=== PATIENT | female | born 1945 | race Two or more races ===

== ENCOUNTER 2021-09-27 12:08 | Emergency (ER) | payer MEDICARE, OTHER ==
[~2021-09-27] VITALS: Ht 175.3 cm; Wt 81.6 kg
[2021-09-27 13:15] VITALS: BP 107/64
== END 2021-09-27 13:54 | disposition home or self-care (01) ==
LOC: ER 12:08
DX: I82.402 Acute embolism and thrombosis of unspecified deep veins of left lower extremity (principal); I10 Essential (primary) hypertension
CPT/HCPCS: 93971

== ENCOUNTER 2022-07-01 08:31 | Inpatient (IN) | payer MEDICARE, OTHER ==
[~2022-07-01] VITALS: Ht 175.3 cm; Wt 81.2 kg
[2022-07-01 09:37] LABS: Basophils # (auto) 0 10 ^3/uL (0-0.2); Basophils % (auto) 0.2 % (0.0-2.0); Eosinophils # (auto) 0.1 10 ^3/uL (0-0.8); Eosinophils % (auto) 0.6 % (0.0-7.0); Hematocrit 45.1 % (36.0-46.0); Hemoglobin 14.8 g/dL (12.2-16.2); Lymphocytes # (auto) 0.8 10 ^3/uL (0.4-5.4); Lymphocytes % (auto) 7.7 % (10.0-50.0); Mean Corpuscular Hemoglobin 29.3 pg (28.0-32.0); Mean Corpuscular Hgb Conc. 32.8 g/dL (32.0-36.0); Mean Corpuscular Volume 89.4 fL (80.0-100.0); Monocytes # (auto) 0.8 10 ^3/uL (0-1.3); Monocytes % (auto) 7.8 % (0.0-12.0); Neutrophils # (auto) 8.7 10 ^3/uL (1.6-8.6); Neutrophils % (auto) 83.7 % (37.0-80.0); Red Blood Cells 5.05 10^6/uL (4.0-5.20); Red Cell Distribution Width 15.6 % (11.8-14.3); White Blood Cell 10.3 10^3/uL (4.4-10.8)
[2022-07-01 10:06] LABS: Albumin 2.7 g/dL (3.4-5.0); Calcium 8.6 mg/dL (8.5-10.1); Potassium 3.7 mmol/L (3.5-5.1)
[2022-07-01 10:09] LABS: BUN/Creatinine Ratio 31.4; Bilirubin, Total 0.3 mg/dL (0.2-1.0); Total Protein 7.2 g/dL (6.4-8.2)
[2022-07-01 10:12] LABS: Urine Bacteria FEW /hpf (None Seen); Urine Blood 1+ /uL (Negative); Urine Specific Gravity 1.008 (1.001-1.035); Urine WBC 5 /hpf (0 - 5)
[2022-07-01] MEDS ORDERED: SODIUM CHLORIDE 0.9% 1,000 ML IV ONE (10:45)
[2022-07-01] MEDS ORDERED: SODIUM CHLORIDE 0.9% 500 ML IVB ONE (10:45)
[2022-07-01 10:58] LABS: INR 1.25 (0.9-1.15); Magnesium 1.8 mg/dL (1.6-2.6); Partial Thromboplastin Time 45.7 sec (24.6-33.4)
[2022-07-01] MEDS ORDERED: cefTRIAXone 1GM/50ML D5W 50 ML IV ONE (13:45)
[2022-07-01] MEDS ORDERED: DOCUSATE SOD 100 MG CAP PO PRN (14:15)
[2022-07-01] MEDS ORDERED: HYDROcodone-ACET 5/325MG TAB PO PRN (14:15)
[2022-07-01] MEDS ORDERED: ACETAMINOPHEN 325 MG TAB PO PRN (14:15)
[2022-07-01] MEDS ORDERED: ONDANSETRON HCL 4 MG/2 ML VIAL IV PRN (14:15)
[2022-07-01] MEDS ORDERED: MORPHINE SULFATE INJ 2 MG/ml SYRG IV PRN (14:15)
[2022-07-02] VITALS (7 sets, daily range): BP systolic 92–124; BP diastolic 53–88
[2022-07-02] MEDS ORDERED: DABI150C5 PO (01:58)
[2022-07-02] MEDS ORDERED: METO25TA5 PO (01:59)
[2022-07-02] MEDS ORDERED: B-COCAP34 OR (02:05)
[2022-07-02] MEDS ORDERED: DILT-29 PO (02:05)
[2022-07-02] MEDS ORDERED: CHOL20007 PO (02:05)
[2022-07-02 05:30] LABS: Basophils # (auto) 0 10 ^3/uL (0-0.2); Basophils % (auto) 0.3 % (0.0-2.0); Eosinophils # (auto) 0.1 10 ^3/uL (0-0.8); Eosinophils % (auto) 0.8 % (0.0-7.0); Hematocrit 41.5 % (36.0-46.0); Hemoglobin 13.7 g/dL (12.2-16.2); Lymphocytes % (auto) 9.5 % (10.0-50.0); Mean Corpuscular Hemoglobin 29.4 pg (28.0-32.0); Mean Corpuscular Hgb Conc. 33.1 g/dL (32.0-36.0); Monocytes % (auto) 9.4 % (0.0-12.0); Neutrophils # (auto) 8.6 10 ^3/uL (1.6-8.6); Red Blood Cells 4.66 10^6/uL (4.0-5.20); Red Cell Distribution Width 15.9 % (11.8-14.3); White Blood Cell 10.7 10^3/uL (4.4-10.8)
[2022-07-02 05:49] LABS: Albumin 2.5 g/dL (3.4-5.0); BUN/Creatinine Ratio 26.1; Calcium 7.9 mg/dL (8.5-10.1); Potassium 3.4 mmol/L (3.5-5.1)
[2022-07-02 05:52] LABS: Bilirubin, Total 0.4 mg/dL (0.2-1.0)
[2022-07-02] MEDS ORDERED: IOHEXOL 350 MG/ML 100ML IJ ONE (13:02)
[2022-07-02] MEDS ORDERED: FURO1TAB31 PO (13:24)
[2022-07-02] MEDS ORDERED: EMTRTAB7 PO (13:24)
[2022-07-02] MEDS ORDERED: ESTR1TAB6 PO (13:24)
[2022-07-02] MEDS ORDERED: VITA80009 PO (13:24)
[2022-07-02] MEDS ORDERED: MEDR2.5T3 PO (13:24)
[2022-07-02] MEDS ORDERED: POTASSIUM CHL 20 Meq TABLET PO ONE (16:45)
== END 2022-07-02 22:28 | disposition home or self-care (01) | DRG 378 ==
LOC: ER 08:31 → OVERFLOW 14:16 → WEST WING 23:24
PROVIDERS: ADMIT Internal Medicine; ATTEND Internal Medicine Geriatric Medicine
DX: K57.91 Diverticulosis of intestine, part unspecified, without perforation or abscess with bleeding (principal); E44.0 Moderate protein-calorie malnutrition; N39.0 Urinary tract infection, site not specified; K86.2 Cyst of pancreas; E87.6 Hypokalemia; F32.A Depression, unspecified; G89.4 Chronic pain syndrome; I10 Essential (primary) hypertension; I48.91 Unspecified atrial fibrillation; Z20.822 Contact with and (suspected) exposure to COVID-19; N32.9 Bladder disorder, unspecified; Z68.26 Body mass index [BMI] 26.0-26.9, adult
CPT/HCPCS: 36415; 71046; 74177; 80053; 81001; 83690; 83735; 84154; 84484; 85025; 85610; 85730; 93005; 96365; 96375; G0378; J0696

== ENCOUNTER 2022-07-21 05:29 | Emergency (ER) | payer OTHER ==
[~2022-07-21] VITALS: Ht 175.3 cm; Wt 81.0 kg
[~2022-07-21 05:29] MED LIST: CHOL20007 PO; DABI150C5 PO; DILT-29 PO; ESTR1TAB6 PO; FURO1TAB31 PO; MEDR2.5T3 PO; METO25TA5 PO; VITA80009 PO
[2022-07-21 06:59] LABS: Basophils # (auto) 0.1 10 ^3/uL (0-0.2); Eosinophils # (auto) 0.2 10 ^3/uL (0-0.8); Eosinophils % (auto) 3.9 % (0.0-7.0); Hematocrit 43.3 % (36.0-46.0); Hemoglobin 14.1 g/dL (12.2-16.2); Lymphocytes # (auto) 1.2 10 ^3/uL (0.4-5.4); Lymphocytes % (auto) 20.2 % (10.0-50.0); Mean Corpuscular Hemoglobin 29.6 pg (28.0-32.0); Mean Corpuscular Hgb Conc. 32.6 g/dL (32.0-36.0); Mean Corpuscular Volume 90.8 fL (80.0-100.0); Monocytes # (auto) 0.6 10 ^3/uL (0-1.3); Monocytes % (auto) 9.3 % (0.0-12.0); Neutrophils # (auto) 4.1 10 ^3/uL (1.6-8.6); Neutrophils % (auto) 65.6 % (37.0-80.0); Nucleated Red Blood Cells % 0.1 %; Red Blood Cells 4.77 10^6/uL (4.0-5.20); Red Cell Distribution Width 16.1 % (11.8-14.3); White Blood Cell 6.2 10^3/uL (4.4-10.8)
[2022-07-21 07:09] LABS: Urine Bacteria NONE SEEN /hpf (None Seen); Urine Blood Negative /uL (Negative); Urine Hyaline Cast FEW /lpf (0 - 2); Urine Specific Gravity 1.008 (1.001-1.035); Urine WBC 81 /hpf (0 - 5)
[2022-07-21 07:16] LABS: Albumin 3.1 g/dL (3.4-5.0); Calcium 8.4 mg/dL (8.5-10.1); Potassium 3.3 mmol/L (3.5-5.1)
[2022-07-21 07:19] LABS: Bilirubin, Total 0.4 mg/dL (0.2-1.0); Total Protein 6.9 g/dL (6.4-8.2)
[2022-07-21 07:26] LABS: Alcohol, Urine < 3.0 mg/dL (0-10); Amphetamine Screen, Urine NEGATIVE (NEGATIVE); Barbiturate Scree,Urine NEGATIVE (NEGATIVE); Benzodiazephine Screen, Urine NEGATIVE (NEGATIVE); Cannabinoid Screen, Urine NEGATIVE (NEGATIVE); Cocaine Screen, Urine NEGATIVE (NEGATIVE); Opiate Scree,Urine NEGATIVE (NEGATIVE); Phencyclidine Screen, Urine NEGATIVE (NEGATIVE)
[2022-07-21] MEDS ORDERED: NITR-87 PO (08:46)
[2022-07-21] MEDS ORDERED: POTASSIUM EFFERVESENT TAB 25 MEQ PO ONE (09:00)
[2022-07-21 13:04] VITALS: BP 134/101
== END 2022-07-21 13:08 | disposition home or self-care (01) ==
LOC: ER 05:29
DX: N39.0 Urinary tract infection, site not specified (principal); E87.6 Hypokalemia; I10 Essential (primary) hypertension
CPT/HCPCS: 36415; 71045; 80053; 80307; 81001; 83880; 84484; 85025; 93005

== ENCOUNTER 2022-12-12 14:05 | Emergency (ER) | payer OTHER, MEDICARE ==
[~2022-12-12] VITALS: Ht 175.3 cm; Wt 87.5 kg
[~2022-12-12 14:05] MED LIST changes: +NITR-87 PO
[2022-12-12] MEDS ORDERED: MORPHINE SULFATE INJ 2 MG/ml SYRG IM ONE (14:30)
[2022-12-12 15:24] LABS: Basophils # (auto) 0.2 10 ^3/uL (0-0.2); Basophils % (auto) 2.1 % (0.0-2.0); Eosinophils # (auto) 0.4 10 ^3/uL (0-0.8); Eosinophils % (auto) 5.4 % (0.0-7.0); Hemoglobin 14.5 g/dL (12.2-16.2); Lymphocytes # (auto) 1.6 10 ^3/uL (0.4-5.4); Lymphocytes % (auto) 21.5 % (10.0-50.0); Mean Corpuscular Hemoglobin 29.5 pg (28.0-32.0); Mean Corpuscular Hgb Conc. 33.7 g/dL (32.0-36.0); Mean Corpuscular Volume 87.5 fL (80.0-100.0); Monocytes # (auto) 0.6 10 ^3/uL (0-1.3); Monocytes % (auto) 8.7 % (0.0-12.0); Neutrophils # (auto) 4.6 10 ^3/uL (1.6-8.6); Neutrophils % (auto) 62.3 % (37.0-80.0); Nucleated Red Blood Cells % 0.1 %; Red Blood Cells 4.91 10^6/uL (4.0-5.20); Red Cell Distribution Width 15.6 % (11.8-14.3); White Blood Cell 7.4 10^3/uL (4.4-10.8)
[2022-12-12 15:40] LABS: Albumin 3.6 g/dL (3.4-5.0); BUN/Creatinine Ratio 18.9; Calcium 8.9 mg/dL (8.5-10.1); Potassium 3.5 mmol/L (3.5-5.1)
[2022-12-12 15:43] LABS: Bilirubin, Total 0.2 mg/dL (0.2-1.0); Total Protein 7.4 g/dL (6.4-8.2)
[2022-12-12 16:41] LABS: Urine Bacteria FEW /hpf (None Seen); Urine Blood Negative /uL (Negative); Urine Hyaline Cast MOD /lpf (0 - 2); Urine Mucus FEW (None Seen); Urine Specific Gravity 1.016 (1.001-1.035); Urine WBC 32 /hpf (0 - 5)
[2022-12-12] MEDS ORDERED: MORP15TA PO (16:58)
[2022-12-12] MEDS ORDERED: NITR-87 PO (16:58)
[2022-12-12 17:04] VITALS: BP 134/78
== END 2022-12-12 17:05 | disposition home or self-care (01) ==
LOC: ER 14:05
DX: N39.0 Urinary tract infection, site not specified (principal); N17.9 Acute kidney failure, unspecified; I10 Essential (primary) hypertension; I48.91 Unspecified atrial fibrillation; Z79.899 Other long term (current) drug therapy
CPT/HCPCS: 36415; 74176; 80053; 81001; 83690; 85025; 96372; 99285; J2270

== ENCOUNTER 2023-04-10 14:12 | Emergency (ER) | payer OTHER ==
[~2023-04-10] VITALS: Ht 175.3 cm; Wt 81.4 kg
[~2023-04-10 14:12] MED LIST changes: -MEDR2.5T3 PO; +MEDR2.5T5 PO; +MORP15TA PO
[2023-04-10 14:36] VITALS: BP 100/62
[2023-04-10] MEDS ORDERED: SILVER SULFADIAZINE 1 % TOPICAL CREAM 50GM TOP ONE (16:00)
[2023-04-10] MEDS ORDERED: CEPH500C PO (16:02)
== END 2023-04-10 16:18 | disposition home or self-care (01) ==
LOC: ER 14:12
DX: T24.211A Burn of second degree of right thigh, initial encounter (principal); I10 Essential (primary) hypertension; X10.0XXA Contact with hot drinks, initial encounter; Y93.89 Activity, other specified; Y92.89 Other specified places as the place of occurrence of the external cause; Y99.8 Other external cause status
CPT/HCPCS: 16020

== ENCOUNTER 2023-04-13 14:47 | Emergency (ER) | payer OTHER ==
[~2023-04-13] VITALS: Ht 177.8 cm; Wt 82.1 kg
[~2023-04-13 14:47] MED LIST changes: +CEPH500C PO
[2023-04-13] MEDS ORDERED: ceFAZolin 1GM/50ML 50 ML IV ONE (16:15)
[2023-04-13 16:27] LABS: Basophils # (auto) 0.1 10 ^3/uL (0-0.2); Basophils % (auto) 0.8 % (0.0-2.0); Eosinophils # (auto) 0.3 10 ^3/uL (0-0.8); Eosinophils % (auto) 3.6 % (0.0-7.0); Hematocrit 44.1 % (36.0-46.0); Hemoglobin 14.6 g/dL (12.2-16.2); Lymphocytes # (auto) 1.4 10 ^3/uL (0.4-5.4); Lymphocytes % (auto) 14.8 % (10.0-50.0); Mean Corpuscular Hemoglobin 28.5 pg (28.0-32.0); Mean Corpuscular Hgb Conc. 33.3 g/dL (32.0-36.0); Mean Corpuscular Volume 85.7 fL (80.0-100.0); Monocytes % (auto) 10.3 % (0.0-12.0); Neutrophils # (auto) 6.6 10 ^3/uL (1.6-8.6); Neutrophils % (auto) 70.5 % (37.0-80.0); Nucleated Red Blood Cells % 0.1 %; Red Blood Cells 5.14 10^6/uL (4.0-5.20); Red Cell Distribution Width 15.1 % (11.8-14.3); White Blood Cell 9.4 10^3/uL (4.4-10.8)
[2023-04-13 16:55] LABS: Albumin 3.4 g/dL (3.4-5.0); Calcium 8.6 mg/dL (8.5-10.1); Potassium 3.6 mmol/L (3.5-5.1)
[2023-04-13 17:00] LABS: BUN/Creatinine Ratio 18.7 (10.0-20.0); Bilirubin, Total 0.8 mg/dL (0.2-1.0); Total Protein 7.2 g/dL (6.4-8.2)
[2023-04-14 01:31] VITALS: BP 110/80
== END 2023-04-14 01:54 | disposition short-term general hospital (02) ==
LOC: ER 14:49
DX: T24.211D Burn of second degree of right thigh, subsequent encounter (principal); L03.115 Cellulitis of right lower limb; F32.9 Major depressive disorder, single episode, unspecified; I10 Essential (primary) hypertension; X11.8XXD Contact with other hot tap-water, subsequent encounter
CPT/HCPCS: 16020; 36415; 80053; 83605; 85025; 87040; 96365; 99285; J0690

== ENCOUNTER 2023-04-26 18:45 | Emergency (ER) | payer OTHER ==
[~2023-04-26] VITALS: Ht 175.3 cm; Wt 77.2 kg
[2023-04-26] MEDS ORDERED: ONDANSETRON ODT 4 MG TAB PO ONE (21:15)
[2023-04-26] MEDS ORDERED: MORPHINE SULFATE INJ 2 MG/ml SYRG IM ONE (21:15)
[2023-04-26 21:39] VITALS: BP 126/69
== END 2023-04-26 21:33 | disposition home or self-care (01) ==
LOC: ER 18:45
DX: T24.211D Burn of second degree of right thigh, subsequent encounter (principal); I10 Essential (primary) hypertension; F32.9 Major depressive disorder, single episode, unspecified; Z76.0 Encounter for issue of repeat prescription; X11.8XXD Contact with other hot tap-water, subsequent encounter
CPT/HCPCS: 96372; 99283; J2270; Q0162